=== PATIENT | male | born 1950 | race Caucasian/White ===

== ENCOUNTER 2018-01-26 21:42 | Outpatient (CLI) ==
[2015-09-18 16:14] VITALS: BMI 35.7
== END 2018-01-26 22:04 | disposition short-term general hospital (02) ==
LOC: AMBL 21:42
PROVIDERS: ATTEND Family Medicine
DX: Z04.1 Encounter for examination and observation following transport accident (principal); V89.2XXA Person injured in unspecified motor-vehicle accident, traffic, initial encounter

== ENCOUNTER 2018-08-23 07:52 | Emergency (ER) ==
[2018-08-23 07:56] VITALS: BP 153/91; TEMP 97.8; BMI 30.4
--- NOTE | 2018-08-23 09:09 | CT ---
EXAM: CT Abdomen without contrast. CT Pelvis without contrast. HISTORY: Left upper quadrant pain, vomiting and fever. COMPARISON: 01/09/2018. TECHNIQUE: Multiple axial images of the abdomen and pelvis were obtained without intravenous contras t. Images were reformatted in the sagittal and coronal plane. FINDINGS: Please note that evaluation of the abdominal and pelvic structures is limited due to lack of intravenous contrast. Lung bases are clear.. Degenerative changes are present in the spine with previous fusion at L4-5 an d L5-S1. Thoracic Schmorl's node formation noted. The liver, gallbladder, pancreas, spleen, and adrenal glands and straight normal contour. The nonobs tructing 0.3 cm right renal calculus noted. Right kidney otherwise appears unremarkable. There is m ild moderate left hydronephrosis/hydroureter secondary to a 0.7 cm obstructing calculus at the left u reteral vesicle junction on axial image 71. It is possible that this is two adjacent 0.4 and 0.3 cm calculi. The bladder is not well distended. There is no evidence for bowel obstruction. Colonic diverticulosis noted. The appendix is normal. Prostatic calcifications are present. IMPRESSION: 1. A 0.7 cm obstructing calculus at the left ureteral vesicle junction causing mild to moderate left hydronephrosis. It is possible that these are two adjacent smaller calculi. 2. Right nephrolithiasis. 3. Diverticulosis.
--- NOTE | 2018-08-23 10:23 | ED.PDOC ---
General ED Provider: Dr. YANELY SIMS Chief Complaint: Nausea/Vomiting Stated Complaint: abdominal pain , nausea, vomiting Time Seen by Physician: 08:00 (no vomiting since thursday) Mode of Arrival: Ambulance Information Source: Patient Exam Limitations: No limitations Primary Care Provider: ABILIO ADKINS Nursing and Triage Documentation Reviewed and Agree: Yes Does patient meet sepsis criteria?: No System Inflammatory Response Syndrome: Not Applicable Sepsis Protocol: For patient's 13 years and over: Temp is 96.8 and below OR 101 and greater Pulse >90 BPM Resp >20/minute Acutely Altered Mental Status Are patient's symptoms suggestive of a new infection, such as: -Pneumonia -Skin, Soft Tissue -Endocarditis -UTI -Bone, Joint Infection -Implantable Device -Acute Abdominal Infection -Wound Infection -Meningitis -Blood Stream Catheter Infection -Unknown GI Complaint Exam - Vomiting/Diarrhea Complaint/Exam Onset/Duration: 2 days ago but some abdominal Symptoms Are: Still present Initial Severity: Mild Current Severity: None Character of Vomiting: Reports: Non-bilious Aggravating: Reports: None Alleviating: Reports: None Associated Signs and Symptoms: Denies: Dizziness, Light-headedness, Melena, Hematemesis, Fever, Abdominal pain, Cramping Related History: Reports: Similar episode Non-GI Risk Factors: Reports: None Surgical Obstruction Risk Factors: Reports: None Related Surgical History: Reports: None Abdominal Findings: Present: None Differential Diagnoses: UTI, Other (renal stone) Review of Systems - Review Of Systems Constitutional: Reports: No symptoms Eyes: Reports: No symptoms Ears, Nose, Mouth, Throat: Reports: No symptoms Respiratory: Reports: No symptoms Cardiac: Reports: No symptoms GI: Reports: Abdominal pain, Nausea, Vomiting : Reports: No symptoms Musculoskeletal: Reports: No symptoms Skin: Reports: No symptoms Neurological: Reports: No symptoms Endocrine: Reports: No symptoms Hematologic/Lymphatic: Reports: No symptoms All Other Systems: Reviewed and Negative Past Medical History - Past Medical History Previously Healthy: Yes Endocrine: Reports: None Cardiovascular: Reports: [facility] Respiratory: Reports: None Hematological: Reports: None Gastrointestinal: Reports: None Genitourinary: Reports: None Neuro/Psych: Reports: Depression Musculoskeletal: Reports: None Cancer: Reports: None - Surgical History General Surgical History: Reports: Other (hemorrhoidectomy with rectal loss of tone) - Family History Family History: Reports: Unknown - Social History Smoking Status: Never smoker Hx Substance Use: No Alcohol Screening: None Physical Exam - Physical Exam Appearance: Well-appearing, No pain distress, Well-nourished Eyes: TIMBO, EOMI, Conjunctiva clear ENT: Ears normal, Nose normal, Oropharynx normal Respiratory: Airway patent, Breath sounds clear, Breath sounds equal, Respirations nonlabored Cardiovascular: RRR, Pulses normal, No rub, No murmur GI/: Soft, Nontender, No masses, Bowel sounds normal, No Organomegaly Musculoskeletal: Normal strength, ROM intact, No edema, No calf tenderness Skin: Warm, Dry, Normal color Neurological: Sensation intact, Motor intact, Reflexes intact, Cranial nerves intact, Alert, Oriented Psychiatric: Affect appropriate, Mood appropriate Interpretation - Radiology Interpretation Radiology Interpretation By: Radiologist Radiology Results: Positive (obstructive stone) Physician Notification - Case Discussed Physician Notified: urology [employer] Time of Notification: 10:23 (transfer ) Critical Care Note - Critical Care Note Total Time (mins): 0 Course - Course Hematology/Chemistry: 08/23/18 08:37 08/23/18 08:37 Orders, Labs, Meds: Lab Review 08/23/18 08/23/18 08/23/18 08:33 08:37 08:37 WBC 12.50 H RBC 5.49 Hgb 16.2 Hct 47.0 MCV 85.6 MCH 29.5 MCHC 34.5 RDW Coeff of Alfonzo 12.7 Plt Count 190 Immature Gran % (Auto) 0.4 Neut % (Auto) 71.9 Lymph % (Auto) 18.2 [place] % (Auto) 8.6 Eos % (Auto) 0.3 Baso % (Auto) 0.6 Immature Gran # (Auto) 0.1 Neut # (Auto) 9.0 H Lymph # (Auto) 2.3 [place] # (Auto) 1.1 Eos # (Auto) 0.0 Baso # (Auto) 0.1 Sodium 135.9 Potassium 3.37 L Chloride 100.6 Carbon Dioxide 22.5 Anion Gap 16.17 BUN 19.3 Creatinine 0.98 Estimated GFR (MDRD) 76.00 BUN/Creatinine Ratio 19.69 Glucose 109.5 H Calcium 11.69 H Total Bilirubin 1.05 AST 27.2 ALT 15.3 Alkaline Phosphatase 129.8 H Total Protein 7.93 Albumin 4.90 Globulin 3.03 Albumin/Globulin Ratio 1.61 Amylase Lipase Influ A Molecular Assay Negative by naat Influ B Molecular Assay Negative by naat 08/23/18 08:37 WBC RBC Hgb Hct MCV MCH MCHC RDW Coeff of Alfonzo Plt Count Immature Gran % (Auto) Neut % (Auto) Lymph % (Auto) [place] % (Auto) Eos % (Auto) Baso % (Auto) Immature Gran # (Auto) Neut # (Auto) Lymph # (Auto) [place] # (Auto) Eos # (Auto) Baso # (Auto) Sodium Potassium Chloride Carbon Dioxide Anion Gap BUN Creatinine Estimated GFR (MDRD) BUN/Creatinine Ratio Glucose Calcium Total Bilirubin AST ALT Alkaline Phosphatase Total Protein Albumin Globulin Albumin/Globulin Ratio Amylase 52.1 Lipase 57.7 Influ A Molecular Assay Influ B Molecular Assay Orders Category Date Time Status AMYLASE Stat LAB 08/23/18 08:37 Completed CBC W/ AUTO DIFF Stat LAB 08/23/18 08:37 Completed COMPREHENSIVE METABOLIC PANEL Stat LAB 08/23/18 08:37 Completed FLU A/B MOLECULAR Stat LAB 08/23/18 08:33 Completed LIPASE Stat LAB 08/23/18 08:37 Completed MOLECULAR GROUP A STREP Stat LAB 08/23/18 08:[address] ABDOMEN/PELVIS WO CONTRAST Stat RADS 08/23/18 08:24 Completed Vital Signs: Temp Pulse Resp BP Pulse Ox 08/23/18 07:53 97.8 F 72 20 153/91 H 96 Departure - Departure Time of Disposition: 10:23 Disposition: HOME SELF-CARE Discharge Problem: Nausea, Vomiting, Renal stone Instructions: Kidney Stones (ED), Renal Colic (ED) Condition: Good Pt referred to PMD for follow-up: Yes IPMP verified?: No Additional Instructions: Please call your Family Physician as soon as possible to schedule a follow-up appointment. Allergies/Adverse Reactions: Allergies No Known Allergies Allergy (Verified 08/23/18 07:56) Home Medications: Ambulatory Orders Gabapentin [Neurontin] 1,500 mg PO BID 09/18/15 Loperamide HCl [Imodium] 2 mg PO TID 08/23/18 Disposition Discussed With: Patient
== END 2018-08-23 10:59 | disposition home or self-care (01) ==
LOC: ED 07:52
DX: N20.0 Calculus of kidney (principal); R11.2 Nausea with vomiting, unspecified; I25.2 Old myocardial infarction
CPT/HCPCS: 36415; 80053; 81001; 82150; 83690; 85025; 87502; 87651; 99285

== ENCOUNTER 2019-01-15 20:39 | Outpatient (CLI) | END 2019-01-15 21:19 | disposition short-term general hospital (02) | LOC: AMBL 20:39 | PROVIDERS: ATTEND Family Medicine | DX: R42 Dizziness and giddiness (principal); R51 Headache; R63.1 Polydipsia; Z95.0 Presence of cardiac pacemaker; Z95.5 Presence of coronary angioplasty implant and graft ==